=== PATIENT | male | born 1955 ===

== ENCOUNTER 2017-03-27 09:47 | Emergency (ER) | payer OTHER, SELFPAY ==
[2017-03-27] MEDS ORDERED: Ketorolac 60 MG/2 ML SDV IM ONE (10:11)
[2017-03-27] MEDS ORDERED: cloNIDine 0.1 MG Tab PO ONE (10:11)
--- NOTE | 2017-03-27 10:11 | EDM.PDOC ---
ED HPI GENERAL MEDICAL PROBLEM - General Chief Complaint: Lower Extremity Injury/Pain Stated Complaint: JOINT PAIN Time Seen by Provider: 03/27/17 09:53 Source of Information: Reports: Patient History Limitations: Reports: No Limitations - History of Present Illness INITIAL COMMENTS - FREE TEXT/NARRATIVE: History of present illness: []Patient has a long history of bilateral knee pain and is followed by Dr. Rohit wsahington. This doctor treats for high uric acid levels with the allopurinol. Patient states the pain never goes away. He also has high blood pressure in his meds do not think his pressure down. patient requesting a rheumatology referral. Patient also has poorly controlled hypertension He denies any chest pain, headache, blurry visiont this time. Review of systems: As per history of present illness and below otherwise all systems reviewed and negative. Past medical history: As per history of present illness and as reviewed below otherwise noncontributory. Surgical history: As per history of present illness and as reviewed below otherwise noncontributory. Social history: No reported history of drug or alcohol abuse. Family history: As per history of present illness and as reviewed below otherwise noncontributory. Physical exam: General: Well developed, well nourished in NAD HEENT: Atraumatic, normocephalic, pupils reactive, negative for conjunctival pallor or scleral icterus, mucous membranes moist, throat clear, neck supple, nontender, trachea midline. Lungs: Clear to auscultation, breath sounds equal bilaterally, chest nontender. Heart: S1S2, regular, negative for clicks, rubs, or JVD. Abdomen: Soft, nondistended, nontender. Negative for masses or hepatosplenomegaly. Negative for costovertebral tenderness. Pelvis: Stable nontender. Genitourinary: Deferred. Rectal: Deferred. Extremities: Atraumatic, negative for cords or calf pain. Neurovascular unremarkable. Neuro: Awake, alert, oriented. Cranial nerves II through XII unremarkable. Cerebellum unremarkable. Motor and sensory unremarkable throughout. Exam nonfocal. Diagnostics: []x-ray showing chronic arthritislateral knees Therapeutics: []diclofenactwice a day for pain Impression: []grade3 osteoarthritis bilateral knees Plan: []follow-up orthopedics Definitive disposition and diagnosis as appropriate pending reevaluation and review of above. bilateral knee Pain Score (Numeric/FACES): 7 - Related Data Allergies Allergy/AdvReac Type Severity Reaction Status Date / Time No Known Allergies Allergy Verified 03/27/17 10:02 Home Meds: Home Meds Allopurinol [Zyloprim] 300 mg PO DAILY 03/27/17 [History] Diclofenac Sodium [Diclofenac Sodium ER] 100 mg PO BID PRN #20 tab.sr.24h [Rx] Lisinopril 5 mg PO BID 03/27/17 [History] Past Medical History HEENT History: Reports: None Cardiovascular History: Reports: Hypertension Respiratory History: Reports: None Gastrointestinal History: Reports: None Genitourinary History: Reports: None Musculoskeletal History: Reports: Other (See Below) Other Musculoskeletal History: Uric Acid problem Neurological History: Reports: None Psychiatric History: Reports: None Endocrine/Metabolic History: Reports: None Hematologic History: Reports: None Immunologic History: Reports: None Oncologic (Cancer) History: Reports: None Dermatologic History: Reports: None - Infectious Disease History Infectious Disease History: Reports: None Social & Family History - Family History Family Medical History: Noncontributory Review of Systems - Review of Systems Review Of Systems: See Below (see history of present illness) ED EXAM, GENERAL - Physical Exam Exam: See Below (see history of present illness) Course - Vital Signs Last Recorded V/S: Last Vital Signs Temp 36.3 C 03/27/17 10:02 Pulse 60 03/27/17 10:44 Resp 16 03/27/17 10:44 BP 187/106 H 03/27/17 10:44 Pulse Ox 97 03/27/17 10:44 - Orders/Labs/Meds Orders: Active Orders 24 hr Category Date Time Status Knee 1V or 2V Lt [CR] Stat Exams 03/27/17 10:09 Taken Knee 1V or 2V Rt [CR] Stat Exams 03/27/17 10:09 Taken Meds: Medications Discontinued Medications Generic Name Dose Route Start Last Admin Trade Name Karq PRN Reason Stop Dose Admin Clonidine HCl 0.2 mg 03/27/17 10:11 03/27/17 10:39 Catapres PO 03/27/17 10:12 0.2 mg ONETIME ONE Administration Ketorolac Tromethamine 60 mg 03/27/17 10:11 03/27/17 10:41 Toradol IM 03/27/17 10:12 60 mg ONETIME ONE Administration Departure - Departure Time of Disposition: 11:42 Disposition: Home, Self-Care 01 Condition: Good Clinical Impression: Degenerative arthritis of knee, bilateral Qualifiers: Osteoarthritis type: unspecified Qualified Code(s): M17.0 - Bilateral primary osteoarthritis of knee - Discharge Information Prescriptions: Diclofenac Sodium [Diclofenac Sodium ER] 100 mg PO BID PRN #20 tab.sr.24h PRN Reason: Pain Forms: ED Department Discharge Additional Instructions: The following information is given to patients seen in the emergency department who are being discharged to home. This information is to outline your options for follow-up care. We provide all patients seen in our emergency department with a follow-up referral. The need for follow-up, as well as the timing and circumstances, are variable depending upon the specifics of your emergency department visit. If you don't have a primary care physician on staff, we will provide you with a referral. We always advise you to contact your personal physician following an emergency department visit to inform them of the circumstance of the visit and for follow-up with them and/or the need for any referrals to a consulting specialist. The emergency department will also refer you to a specialist when appropriate. This referral assures that you have the opportunity for follow-up care with a specialist. All of these measure are taken in an effort to provide you with optimal care, which includes your follow-up. Under all circumstances we always encourage you to contact your private physician who remains a resource for coordinating your care. When calling for follow-up care, please make the office aware that this follow-up is from your recent emergency room visit. If for any reason you are refused follow-up, please contact the [facility] Emergency Department at and asked to speak to the emergency department charge nurse. Ice knees for 20 minutes at a time 2-3 times a day, diclofenac as directed for pain continue meds as directed return if symptoms worsen follow-up with orthopedics [facility] [address], [address] [place] [address] - My Orders Last 24 Hours: My Active Orders 03/27/17 10:09 Knee 1V or 2V Lt [CR] Stat Knee 1V or 2V Rt [CR] Stat - Assessment/Plan Last 24 Hours: My Active Orders 03/27/17 10:09 Knee 1V or 2V Lt [CR] Stat Knee 1V or 2V Rt [CR] Stat
[2017-03-27 12:03] VITALS: BP 140/87
--- NOTE | 2017-03-27 13:27 | CR ---
EXAM DATE: 03/27/17 PATIENT'S AGE: 61 Patient: INGE CASTILLO Facility: [place], [place] Site . Site : 1955 Study: XRay Knee Bilateral [id number]/21/2017 11:17:46 AM Ordering Physician: Gianluca Colbert Final Report: INDICATION: Chronic pain worsening HISTORY: Chronic knee pain. COMPARISON: None. TECHNIQUE: AP radiographs and both knees, lateral view both knees. FINDINGS: Moderate joint space loss in the medial compartments at both femorotibial joints , with osteophytic spurring. No acute bone abnormality is seen. Mineralization is normal. No radiopaque foreign body. There is osteophytic spurring about the superior pole of the patella bilaterally. Minimal suprapatellar joint fluid. IMPRESSION: 1. Moderate osteoarthritis, primarily in the medial compartments. 2. No acute bone abnormality. Dictated by Alf Jordan MD @ 03/27/2017 11:30:30 AM Dictated by: Alf Jordan MD @ 03/27/2017 11:30:38 (Electronic Signature) Report Signed by Proxy. [facility] CENTERWilfredo
--- NOTE | 2017-03-27 13:27 | CR ---
EXAM DATE: 03/27/17 PATIENT'S AGE: 61 Patient: INGE CASTILLO Facility: [place], [place] Site . Site : 1955 Study: XRay Knee Bilateral [id number]/21/2017 11:17:46 AM Ordering Physician: Gianluca Colbert Final Report: INDICATION: Chronic pain worsening HISTORY: Chronic knee pain. COMPARISON: None. TECHNIQUE: AP radiographs and both knees, lateral view both knees. FINDINGS: Moderate joint space loss in the medial compartments at both femorotibial joints , with osteophytic spurring. No acute bone abnormality is seen. Mineralization is normal. No radiopaque foreign body. There is osteophytic spurring about the superior pole of the patella bilaterally. Minimal suprapatellar joint fluid. IMPRESSION: 1. Moderate osteoarthritis, primarily in the medial compartments. 2. No acute bone abnormality. Dictated by Alf Jordan MD @ 03/27/2017 11:30:30 AM Dictated by: Alf Jordan MD @ 03/27/2017 11:30:38 (Electronic Signature) Report Signed by Proxy. [facility]ITAL[facility]fred[facility]
== END 2017-03-27 11:53 | disposition home or self-care (01) ==
LOC: MW.ED 09:47
DX: M17.0 Bilateral primary osteoarthritis of knee (principal); I10 Essential (primary) hypertension; Z79.899 Other long term (current) drug therapy
CPT/HCPCS: 73560; 96372; 99283; A9270; J1885

== ENCOUNTER 2017-03-30 09:02 | Emergency (ER) | payer OTHER, SELFPAY ==
[2017-03-30] MEDS ORDERED: Famotidine 20 MG/2 ML SDV IVPUSH ONE (09:17)
[2017-03-30] MEDS ORDERED: Sodium Chloride 0.9% 1,000 ML IV ONE (09:17)
[2017-03-30 09:44] LABS: CHLORIDE,CL 106 mmol/L (98-110); SODIUM,NA 141 mmol/L (136-146)
--- NOTE | 2017-03-30 10:22 | EDM.PDOC ---
ED HPI GENERAL MEDICAL PROBLEM - General Chief Complaint: Abdominal Pain Stated Complaint: ABDOMINAL PAIN Time Seen by Provider: 03/30/17 09:38 Source of Information: Reports: Patient History Limitations: Reports: No Limitations - History of Present Illness INITIAL COMMENTS - FREE TEXT/NARRATIVE: History of present illness: []patient has a history of gout and osteoarthritisand is taking diclofenac and allopurinol. Patient states that he has been having epigastric pain that is worse after eating greasy and spicy food food. Patient denies any fevers, chills , nausea or vomiting. Review of systems: As per history of present illness and below otherwise all systems reviewed and negative. Past medical history: As per history of present illness and as reviewed below otherwise noncontributory. Surgical history: As per history of present illness and as reviewed below otherwise noncontributory. Social history: No reported history of drug or alcohol abuse. Family history: As per history of present illness and as reviewed below otherwise noncontributory. Physical exam: General: Well developed, well nourished in NAD HEENT: Atraumatic, normocephalic, pupils reactive, negative for conjunctival pallor or scleral icterus, mucous membranes moist, throat clear, neck supple, nontender, trachea midline. Lungs: Clear to auscultation, breath sounds equal bilaterally, chest nontender. Heart: S1S2, regular, negative for clicks, rubs, or JVD. Abdomen: Soft, nondistended, nontender. Negative for masses or hepatosplenomegaly. Negative for costovertebral tenderness. Pelvis: Stable nontender. Genitourinary: Deferred. Rectal: Deferred. Extremities: Atraumatic, negative for cords or calf pain. Neurovascular unremarkable. Neuro: Awake, alert, oriented. Cranial nerves II through XII unremarkable. Cerebellum unremarkable. Motor and sensory unremarkable throughout. Exam nonfocal. Diagnostics: []labsshowing normal white count and liver function tests. Therapeutics: []Pepcid IV and hydrated with improvement Impression: [] gastritis Plan: []omeprazole for pain, continue other meds as directed. Definitive disposition and diagnosis as appropriate pending reevaluation and review of above. abdomen Pain Score (Numeric/FACES): 4 - Related Data Allergies Allergy/AdvReac Type Severity Reaction Status Date / Time No Known Allergies Allergy Verified 03/30/17 09:11 Home Meds: Home Meds Allopurinol [Zyloprim] 300 mg PO DAILY 03/27/17 [History] Diclofenac Sodium [Diclofenac Sodium ER] 100 mg PO BID PRN #20 tab.sr.24h [Rx] Lisinopril 5 mg PO BID 03/27/17 [History] Omeprazole 20 mg PO BIDAC #30 cap.cr 03/30/17 [Rx] Past Medical History - Past Health History Medical/Surgical History: Denies Medical/Surgical History HEENT History: Reports: None Cardiovascular History: Reports: Hypertension Respiratory History: Reports: None Gastrointestinal History: Reports: None Genitourinary History: Reports: None Musculoskeletal History: Reports: Other (See Below) Other Musculoskeletal History: Uric Acid problem Neurological History: Reports: None Psychiatric History: Reports: None Endocrine/Metabolic History: Reports: Obesity/BMI 30+ Hematologic History: Reports: None Immunologic History: Reports: None Oncologic (Cancer) History: Reports: None Dermatologic History: Reports: None - Infectious Disease History Infectious Disease History: Reports: None Social & Family History - Family History Family Medical History: Noncontributory - Tobacco Use Smoking Status *Q: Never Smoker - Caffeine Use Caffeine Use: Reports: Coffee - Recreational Drug Use Recreational Drug Use: No ED ROS GENERAL - Review of Systems Review Of Systems: See Below (see history of present illness) ED EXAM, GI/ABD - Physical Exam Exam: See Below (see history of present illness) Course - Vital Signs Last Recorded V/S: Last Vital Signs Temp 36.7 C 03/30/17 09:10 Pulse 71 03/30/17 09:10 Resp 18 03/30/17 09:10 BP 184/100 H 03/30/17 09:10 Pulse Ox 97 03/30/17 09:10 - Orders/Labs/Meds Orders: Active Orders 24 hr Category Date Time Status Sodium Chloride 0.9% [Normal Saline] 1,000 ml Med 03/30/17 09:17 Active IV .Bolus Saline Lock Insert [OM.PC] Stat Oth 03/30/17 09:17 Ordered Medication Orders Sodium Chloride (Normal Saline) 1,000 mls @ 999 mls/hr IV .Bolus ONE Stop: 03/30/17 10:17 Last Admin: 03/30/17 09:31 Dose: 999 mls/hr Labs: Laboratory Tests 03/30/17 03/30/17 Range/Units 09:12 09:12 WBC 6.74 (4.0-11.0) K/uL RBC 4.77 (4.50-5.90) M/uL Hgb 13.7 (13.0-17.0) g/dL Hct 41.5 (38.0-50.0) % MCV 87.0 (80.0-98.0) fL MCH 28.7 (27.0-32.0) pg MCHC 33.0 (31.0-37.0) g/dL RDW Std Deviation 42.5 (28.0-62.0) fl RDW Coeff of Eduin 14 (11.0-15.0) % Plt Count 214 (150-400) K/uL MPV 9.20 (7.40-12.00) fL Neut % (Auto) 55.3 (48.0-80.0) % Lymph % (Auto) 29.2 (16.0-40.0) % Comal % (Auto) 8.8 (0.0-15.0) % Eos % (Auto) 6.4 (0.0-7.0) % Baso % (Auto) 0.3 (0.0-1.5) % Neut # (Auto) 3.7 (1.4-5.7) K/uL Lymph # (Auto) 2.0 (0.6-2.4) K/uL Comal # (Auto) 0.6 (0.0-0.8) K/uL Eos # (Auto) 0.4 (0.0-0.7) K/uL Baso # (Auto) 0.0 (0.0-0.1) K/uL Nucleated RBC % 0.0 /100WBC Nucleated RBCs # 0 K/uL Sodium 141 (136-146) mmol/L Potassium 3.9 (3.5-5.1) mmol/L Chloride 106 (98-110) mmol/L Carbon Dioxide 26 (21-31) mmol/L BUN 15 (6.0-23.0) mg/dL Creatinine 1.1 (0.6-1.5) mg/dL Est Cr Clr Drug Dosing 67.60 mL/min Estimated GFR (MDRD) > 60.0 ml/min Glucose 87 (60-110) mg/dL Calcium 9.0 (8.8-10.8) mg/dL Total Bilirubin 0.3 (0.1-1.5) mg/dL AST 19 (5-40) IU/L ALT 23 (8-54) IU/L Alkaline Phosphatase 77 (40-150) Total Protein 6.6 (6.0-8.0) g/dL Albumin 3.7 (3.5-5.0) g/dL Globulin 2.9 (2.0-3.5) g/dL Albumin/Globulin Ratio 1.3 (1.3-2.8) Lipase 55 (7-80) U/L Meds: Medications Generic Name Dose Route Start Last Admin Trade Name Freq PRN Reason Stop Dose Admin Sodium Chloride 1,000 mls @ 999 mls/hr 03/30/17 09:17 03/30/17 09:31 Normal Saline IV 03/30/17 10:17 999 mls/hr .Bolus ONE Administration Discontinued Medications Generic Name Dose Route Start Last Admin Trade Name Freq PRN Reason Stop Dose Admin Famotidine 20 mg 03/30/17 09:17 03/30/17 09:32 Pepcid IVPUSH 03/30/17 09:18 20 mg ONETIME ONE Administration Departure - Departure Time of Disposition: 10:20 Disposition: Home, Self-Care 01 Condition: Good Clinical Impression: GERD (gastroesophageal reflux disease) Qualifiers: Esophagitis presence: esophagitis presence not specified Qualified Code(s): K21.9 - Gastro-esophageal reflux disease without esophagitis - Discharge Information Prescriptions: Omeprazole 20 mg PO BIDAC #30 cap.cr Forms: ED Department Discharge Additional Instructions: The following information is given to patients seen in the emergency department who are being discharged to home. This information is to outline your options for follow-up care. We provide all patients seen in our emergency department with a follow-up referral. The need for follow-up, as well as the timing and circumstances, are variable depending upon the specifics of your emergency department visit. If you don't have a primary care physician on staff, we will provide you with a referral. We always advise you to contact your personal physician following an emergency department visit to inform them of the circumstance of the visit and for follow-up with them and/or the need for any referrals to a consulting specialist. The emergency department will also refer you to a specialist when appropriate. This referral assures that you have the opportunity for follow-up care with a specialist. All of these measure are taken in an effort to provide you with optimal care, which includes your follow-up. Under all circumstances we always encourage you to contact your private physician who remains a resource for coordinating your care. When calling for follow-up care, please make the office aware that this follow-up is from your recent emergency room visit. If for any reason you are refused follow-up, please contact the [facility] Emergency Department at and asked to speak to the emergency department charge nurse. take usual meds as prescribed. Start taking omeprazole twice a day all over with primary care [facility] [address] [place] [phone] - My Orders Last 24 Hours: My Active Orders 03/30/17 09:17 Sodium Chloride 0.9% [Normal Saline] 1,000 ml IV .Bolus Saline Lock Insert [OM.PC] Stat - Assessment/Plan Last 24 Hours: My Active Orders 03/30/17 09:17 Sodium Chloride 0.9% [Normal Saline] 1,000 ml IV .Bolus Saline Lock Insert [OM.PC] Stat
[2017-03-30 10:39] VITALS: BP 163/96
== END 2017-03-30 10:35 | disposition home or self-care (01) ==
LOC: MW.ED 09:02
DX: K29.70 Gastritis, unspecified, without bleeding (principal); K21.9 Gastro-esophageal reflux disease without esophagitis; I10 Essential (primary) hypertension; E66.9 Obesity, unspecified; Z79.899 Other long term (current) drug therapy
CPT/HCPCS: 36415; 80053; 83690; 85025; 96361; 96374; 99284; J7040